=== PATIENT | male | born 1965 ===

== ENCOUNTER 2018-08-17 10:30 | Emergency (ER) | payer BC, OTHER ==
[2018-08-17] MEDS ORDERED: Morphine ORAL.SOLN 10 mg* 2 MG/ML UDC 5 ml PO ONE (10:48)
[2018-08-17] MEDS ORDERED: Cyclobenzaprine TAB* 10 MG PO ONE (10:49)
--- NOTE | 2018-08-17 10:54 | ED ---
Back Pain - HPI Summary HPI Summary: A 53 y/o male brought in by [facility] ambulance presents to [facility] with a chief complaint of back pain since 06/16/19. Per triage note, Pt stated that after he finished shoveling snow yesterday his back started to hurt. Pt has pain now. Pt has chronic back issues. He rates his pain as 3/10 in severity. He claims that his pain is in his left lower back. He reports that he did not experience any pain while shoveling snow, but started to experience pain after when he went inside his home and is gradually worsening. He denies leg pain, urinary symptoms, feet numbness or tingling. He reports that his gale hang up usually alleviates his back pain, but it has not alleviated his pain. Ibuprofen also has not alleviated his pain. He had an appointment today to get stitches removed from his finger. His stitches were placed at [facility]. He thinks that his back pain may be due to weight gain. - History of Current Complaint Chief Complaint: EDBackInjuryPain Stated Complaint: BACK PAIN Hx Obtained From: Patient, EMS Onset/Duration: Sudden Onset, Lasting Days, Still Present Onset/Duration: Started Days Ago, Still Present Timing: Constant Severity Initially: Mild Severity Currently: Moderate Pain Intensity: 3 Pain Scale Used: 0-10 Numeric Character: Sharp Aggravating Symptom(s): Nothing Alleviating Symptom(s): Nothing Associated Signs And Symptoms: Negative: Fever, Numbness, Tingling, Bladder Incontinence - Allergies/Home Medications Allergies/Adverse Reactions: Allergies Allergy/AdvReac Type Severity Reaction Status Date / Time No Known Allergies Allergy Verified 08/17/18 10:40 PMH/Surg Hx/FS Hx/Imm Hx Endocrine/Hematology History: Denies: Hx Diabetes Cardiovascular History: Denies: Hx Hypertension Musculoskeletal History: Reports: Hx Back Problems Infectious Disease History: No Infectious Disease History: Denies: Traveled Outside the [place] in Last 30 Days - Family History Known Family History: Positive: Cardiac Disease, Diabetes, Other - cancer - Social History Lives: With Family Alcohol Use: Rare Hx Substance Use: No Substance Use Type: Reports: None Hx Tobacco Use: No Smoking Status (MU): Never Smoked Tobacco Review of Systems Negative: Fever Positive: no symptoms reported Musculoskeletal: Negative - leg pain Positive: Myalgia - back pain - left lower back Negative: Paresthesia, Numbness All Other Systems Reviewed And Are Negative: Yes Physical Exam - Summary Physical Exam Summary: Appearance: Well-appearing, Well-nourished, lying in bed comfortably Skin: Warm, dry, no obvious rash Eyes: sclera anicteric, no conjunctival pallor ENT: mucous membranes moist, pharynx appears normal Neck: Supple, nontender Respiratory: Clear to auscultation, no signs of respiratory distress Cardiovascular: Normal S1, S2. No murmurs. Normal distal pulses in tibial and radial bilaterally. Abdomen: Soft, nontender, normal active bowel sounds present Musculoskeletal: Normal, Strength/ROM Intact Neurological: Reflexes in ankles and knees with no clonus. A&Ox3, awake and alert, mentation is normal, speech is fluent and appropriate Psychiatric: affect is normal, does not appear anxious or depressed Triage Information Reviewed: Yes Vital Signs On Initial Exam: Initial Vitals Temp Pulse Resp BP Pulse Ox 98.0 F 68 17 136/86 98 08/17/18 10:37 08/17/18 10:37 08/17/18 10:37 08/17/18 10:37 08/17/18 10:37 Vital Signs Reviewed: Yes Diagnostics - Vital Signs Vital Signs Temp Pulse Resp BP Pulse Ox 08/17/18 10:37 98.0 F 68 17 136/86 98 - Laboratory Lab Statement: Any lab studies that have been ordered have been reviewed, and results considered in the medical decision making process. Back Pain Course/Dx - Course Course Of Treatment: A 53 y/o male brought in by [facility] ambulance presents to [facility] with a chief complaint of back pain since 06/16/19. The patient has a Hx of chronic back pain, but claims that this pain after shovelling snow has not been alleviated by his "gale hang up" or ibuprofen. His physical exam was unremarkable, revealing that his neurological reflexes in his ankles and knees had no clonus. There are no "red flags" for spinal infection or acute neurologic syndrome. In the ED course he was given Flexeril PO and Morphine PO. He was also given Morphine IV, Decadron IV and Toradol IV. The patient will be discharged with prescriptions for ativan and morphine. He is agreeable with this plan. - Diagnoses Provider Diagnoses: Acute low back pain Discharge - Sign-Out/Discharge Documenting (check all that apply): Patient Departure - DC - Discharge Plan Condition: Improved Disposition: HOME Prescriptions: LORazepam TAB(*) [Ativan 0.5 MG TAB (*)] 0.5 mg PO Q8H PRN #10 tab MDD 3 tabs PRN Reason: Spasms Morphine Sulfate 30 mg PO Q4HR PRN #15 tablet MDD 90 mg PRN Reason: Pain Patient Education Materials: Back Pain (ED) Referrals: Ferny Maddox MD [Primary Care Provider] - 4 Days (if not improving) Additional Instructions: Stagger the ativan and morphine so you don't get oversedated. Using a stool softener may be helpful as many people on opioids get constipated. - Billing Disposition and Condition Condition: IMPROVED Disposition: Home - Attestation Statements Document Initiated by лОег: Yes Documenting Scribe: Micah Matthew Provider For Whom Олег is Documenting (Include Credential): Jak Caldera MD Scribe Attestation: IMicah, hussainibed for Jak Caldera MD on 08/17/18 at 1727. Scribe Documentation Reviewed: Yes Provider Attestation: The documentation as recorded by the Micah connelly accurately reflects the service I personally performed and the decisions made by me, Jak Caldera MD Status of Scribe Document: Viewed
--- OUTSIDE RECORDS SUMMARY | 2018-08-17 10:54 | XMS REPORT | Continuity of Care Document ---
:1965 External Reference #:[id number] Author Name Rhea Negro Care Team Providers Name Role Phone Teddy Maddox MD Primary Care Physician Unavailable Payers Type Date Identification Numbers Payment Provider Subscriber Effective: 2018 Policy Number: Tonya Mary [id number] Onset: 2018 PayID: [id number] [place] [address] Expires: 2018 Policy Number: [id number] Bankruptcy Gonzales Mary PayID: [id number] [address] Advance Directives Description No Information Available Problems Date Description Provider Status Onset: 08/18/2014 Knee joint effusion Eloy Brown M.D. Active Onset: 08/18/2014 Derangement of knee Eloy Brown M.D. Active Onset: 08/18/2014 Sprain of cruciate ligament of knee Eloy Brown M.D. Active Onset: 11/11/2014 Derangement of medial meniscus Eloy Brown M.D. Active Onset: 11/11/2014 Derangement of lateral meniscus Eloy Brown M.D. Active Onset: 11/11/2014 Loose body in knee Eloy Brown M.D. Active Onset: 12/09/2014 Traumatic arthropathy-knee Eloy Brown M.D. Active Family History Date Family Member(s) Problem(s) Comments General Diabetes Type I General Heart Disease General Lung Cancer Social History Type Date Description Comments Sex Unknown Lives With Girlfriend Lives With Daughter Lives With 2 dogs Occupation [employer] ETOH Use Occasionally consumes alcohol ETOH Use 2-4 drinks a month Tobacco Use Start: Unknown marijuana Tobacco Use Start: Unknown In past while being treaded for hep c Smoking Status Reviewed: 08/10/18 In past while being treaded for hep c Exercise Type/Frequency Exercises rarely Allergies, Adverse Reactions, Alerts Description No Known Drug Allergies Medications Medication Date Status Form Strength Qnty SIG Indications Ordering Provider Cephalexin Active Capsules 500mg 1 by Unknown 000 mouth four times a day Hydrocodone-Ac 0 Active Tablets 5-325mg 1 or 2 Unknown etaminophen 000 tabs by mouth every 6-8 hours as needed for pain No Active Hx Unknown Medications 015 - 019 Percocet Hx Tablets 5-325mg 90tabs Eloy Brown M.D. 015 No Active Hx Unknown Medications 015 - 015 Percocet 0 Hx Tablets 5-325mg 1-2 by Unknown 000 - mouth every 4 015 to 6 hours as needed pain Oxycodone HCL 0 Hx Tablets 5mg 1 tabs by Unknown 000 - mouth every 4-6 019 hours as needed Immunizations Description No Information Available Vital Signs Date Vital Result Comment 08/10/2018 11:01am Height 73 inches 6'1" Weight 269.00 lb BP Systolic 124 mmHg BP Diastolic 88 mmHg Pain Level 4 BMI (Body Mass Index) 35.5 kg/m2 12/09/2014 11:22am Height 73 inches 6'1" Weight 255.00 lb Heart Rate 80 /min BP Systolic Recheck 130 mmHg BP Diastolic Recheck 84 mmHg Respiratory Rate 16 /min Body Temperature 98.2 F Pain Level 0 BMI (Body Mass Index) 33.6 kg/m2 11/11/2014 9:03am Height 73 inches 6'1" Weight 250.00 lb Heart Rate 76 /min BP Systolic Recheck 126 mmHg BP Diastolic Recheck 80 mmHg Respiratory Rate 16 /min Body Temperature 97.7 F Pain Level 1 BMI (Body Mass Index) 33.0 kg/m2 10/28/2014 9:38am Height 73 inches 6'1" Weight 250.00 lb Heart Rate 72 /min BP Systolic Recheck 136 mmHg BP Diastolic Recheck 86 mmHg Respiratory Rate 16 /min Body Temperature 98.0 F Pain Level 5 BMI (Body Mass Index) 33.0 kg/m2 09/23/2014 3:50pm Height 73 inches 6'1" Weight 245.00 lb Heart Rate 76 /min BP Systolic Recheck 136 mmHg BP Diastolic Recheck 86 mmHg Respiratory Rate 16 /min Body Temperature 98.0 F Pain Level 10 BMI (Body Mass Index) 32.3 kg/m2 09/02/2014 10:34am Height 73 inches 6'1" Weight 246.00 lb Heart Rate 80 /min BP Systolic Recheck 130 mmHg BP Diastolic Recheck 84 mmHg Respiratory Rate 16 /min Body Temperature 98.3 F Pain Level 8 BMI (Body Mass Index) 32.5 kg/m2 08/18/2014 1:23pm Height 73 inches 6'1" Weight 146.00 lb Heart Rate 76 /min BP Systolic Recheck 134 mmHg BP Diastolic Recheck 86 mmHg Respiratory Rate 16 /min Body Temperature 97.5 F Pain Level 9 BMI (Body Mass Index) 19.3 kg/m2 Results Test Date Facility Test Result H/L Range Note Body Fluid 09/02/2014 [facility] Body Fluid Cult (SEE NOTE) 1, 2 C&S [address] [employer] [facility] [place] [address] [phone] Xray 08/22/2014 [facility] Knees Standing <pending> [address] [place] [address] [phone] MRI Knee W/O Contrast RT <pending> 1 ORTHO 2 RUN DATE: 09/06/14 [facility] LAB LIVE PAGE 1 RUN TIME: [address] [place], [place] [address] Specimen Inquiry Name: GONZALES MARY : [address]: Eloy Brown MD Acct: [id number] Unit: [id number] AGE: 49 Location: [facility] Re09/02/14 SEX: M Status: REG REF SPEC: [id number] JS: 09/02/14-[address]: Eloy Brown MD REQ: [id number] RECD: 09/02/14 STATUS: COMP _ SOURCE: BODY FLUID SPDESC:KNEE RIGHT ORDERED: BF Cult/GS COMMENTS: ORTHO Procedure Result Verified Site Body Fluid Gram Stain Final 09/02/14- 1756 ML 2+ Nucleated Cells 1+ Neutrophils No Organisms Seen Preparation By Cytospin Smear Body Fluid Culture Final 09/06/14- 1035 ML No Growth Day 4 END OF REPORT * ML=Testing performed at Main Lab DEPARTMENT OF PATHOLOGY, [address] [place] [address] Stepan Charlton M.D. Director [facility] # [id number] Procedures Date Code Description Status 10/18/2014 95199 Arthroscopy,Knee,Meniscectomy Media & Lateral Completed 10/18/2014 56593 Arthroscopy Knee Synovectomy Major Completed 10/18/2014 57135 Arthoscopy,Knee,W/Removal Loose Or Foreign Body Completed 09/02/2014 75875 Inject/Drain Joint/Bursa Major W/O US Completed Encounters Type Date Location Provider Dx Diagnosis Office Visit 09/23/2014 [facility] Eloy Obrien 719.06 Effusion Joint 3:00p [facility] AT Nick Brown M.D. Lower Leg 717.9 Internal Derangement Knee Unspec 844.2 Sprains & Strains Knee Cruciate Ligament Office Visit 09/02/2014 10:15a Orthopedic Eloy Obrien 719.06 Effusion Joint Services [facility] DOMINGA Brown M.D. Lower Leg Nick 717.9 Internal Derangement Knee Unspec 844.2 Sprains & Strains Knee Cruciate Ligament Office Visit 08/18/2014 1:15p Orthopedic Eloy Obrien 719.06 Effusion Joint [facility] DOMINGA Brown M.D. Lower Leg Nick 717.9 Internal Derangement Knee Unspec 844.2 Sprains & Strains Knee Cruciate Ligament Plan of Treatment Future Appointment(s):08/17/2018 9:45 am - Kamala Newell M.D. [facility]/10[facility]2018 - Kamala Newell M.D.S67.193A Crushing injury of left middle finger, initial encounterFollow up:Follow up: 1 weekS62.633A Displaced fracture of distal phalanx of left middle finger,
[2018-08-17] MEDS ORDERED: Ketorolac INJ* 30 MG/ML 1 ML VIAL IV PUSH ONE (12:02)
[2018-08-17] MEDS ORDERED: Dexamethasone IV* 4 MG/ML 1 ML (4 MG) PO ONE (12:02)
[2018-08-17] MEDS ORDERED: Morphine VIAL* 4 MG/ML VIAL (1 ml vial) IV ONE ×2 (13:25→14:15)
[2018-08-17] MEDS ORDERED: LORazepam TAB(*) 1 MG PO ONE (15:44)
[2018-08-17 15:58] VITALS: BP 122/69
== END 2018-08-17 15:58 | disposition home or self-care (01) ==
LOC: ED 10:30
DX: M54.5 Low back pain (principal)
CPT/HCPCS: 96374; 96375; 96376; 99282; A9270-GY; J1100; J1885; J2270